=== PATIENT | male | born 1940 | race Caucasian/White ===

== ENCOUNTER 2021-02-05 11:39 | Observation (INO) | payer OTHER, MEDICARE ==
[~2021-02-05] VITALS: Ht 190.5 cm; Wt 83.8 kg
[2021-02-05 12:20] LABS: BASOPHILS % (AUTO) 0.3 % (0-1); EOSINOPHILS # (AUTO) 0.1 X10'3 (0-0.9); EOSINOPHILS % (AUTO) 1.9 % (0-6); HEMATOCRIT 40.7 % (42.0-52.0); HEMOGLOBIN 13.7 g/dl (14.0-17.9); LYMPHOCYTES % (AUTO) 15.2 % (21-51); MEAN CORPUSCULAR HEMOGLOBIN 31.3 PG (27.0-31.0); MEAN CORPUSCULAR HGB CONC 33.8 g/dL (33.0-36.5); MEAN CORPUSCULAR VOLUME 92.7 FL (78-98); MEAN PLATELET VOLUME 7.6 FL (7.4-10.4); MONOCYTES # (AUTO) 0.5 X10'3 (0-0.9); MONOCYTES % (AUTO) 7.1 % (2-12); NEUTROPHILS # (AUTO) 5.1 X10'3 (1.8-7.7); NEUTROPHILS % (AUTO) 75.5 % (42-75); PLATELET COUNT 253 X10'3 (140-440); RED BLOOD COUNT 4.38 X10'6 (4.70-6.10); RED CELL DISTRIBUTION WIDTH 12.5 % (11.5-14.5); WHITE BLOOD COUNT 6.7 X10'3 (4.5-11.0)
[2021-02-05 12:30] LABS: ALANINE AMINOTRANSFERASE 31 U/L (12-78); ALBUMIN 3.8 G/DL (3.4-5.0); ALBUMIN/GLOBULIN RATIO 1.2 (1.1-1.5); ALKALINE PHOSPHATASE 78 IU/L (46-116); ANION GAP 7 (8-16); ASPARTATE AMINO TRANSFERASE 18 U/L (10-37); BILIRUBIN,TOTAL 0.6 MG/DL (0.1-1.0); BLOOD UREA NITROGEN 18 MG/DL (7-18); BUN/CREATININE RATIO 20.9 (5.4-32.0); CALCIUM 10.7 MG/DL (8.5-10.1); CHLORIDE 106 MMOL/L (99-107); CREATININE 0.86 MG/DL (0.60-1.10); GLUCOSE 99 MG/DL (70-104); POTASSIUM 4.2 MMOL/L (3.5-5.1); SODIUM 141 MMOL/L (135-145); TOTAL CARBON DIOXIDE 28.4 MMOL/L (24-32); TOTAL PROTEIN 6.9 G/DL (6.4-8.2); eGFR 86 ML/MIN
[2021-02-05] MEDS ORDERED: NO HOME MEDS (13:19)
--- NOTE | 2021-02-05 14:04 | NUR ---
PT REPORTS THAT LEFT SIDED CHEST PAIN HAS RESOLVED.
[2021-02-05] MEDS ORDERED: aspirin 325mg tablet PO ONE (14:10)
[2021-02-05] MEDS ORDERED: potassium Cl 20 mEq SR tablet PO PRN ×2 (14:35)
[2021-02-05] MEDS ORDERED: acetaminophen 325mg tablet PO PRN ×2 (14:35)
[2021-02-05] MEDS ORDERED: magnesium 2GM in 50ml NS 50 ML IV PRN (14:35)
[2021-02-05] MEDS ORDERED: HYDROcodone/acetaminophen 5mg/325mg tablet PO PRN (14:35)
[2021-02-05] MEDS ORDERED: acetaminophen 650mg rectal suppository RC PRN (14:35)
[2021-02-05] MEDS ORDERED: bisacodyl 10mg suppository rectal RC PRN (14:35)
[2021-02-05] MEDS ORDERED: metoclopramide 5 mg/ml inj IV PRN (14:35)
[2021-02-05] MEDS ORDERED: aminophylline 250mg/10ml inj. IV PRN (14:35)
[2021-02-05] MEDS ORDERED: mag hydrox/Alum hydrox/simeth 30ml oral suspension PO PRN (14:35)
[2021-02-05] MEDS ORDERED: regadenoson 0.4mg/5ml syringe IV PRN (14:35)
[2021-02-05] MEDS ORDERED: metoprolol tartrate 1mg/ml inj IV PRN (14:35)
[2021-02-05] MEDS ORDERED: potassium Cl 40MEQ/1/2NS 520ml 520 ML IV PRN ×2 (14:35)
[2021-02-05] MEDS ORDERED: magnesium hydroxide 30ml (MOM) UD suspension PO PRN (14:35)
[2021-02-05] MEDS ORDERED: HYDROcodone/acetaminophen 10/325mg tab PO PRN (14:35)
[2021-02-05] MEDS ORDERED: ondansetron/PF 4mg/2ml inj IV PRN (14:35)
[2021-02-05] MEDS ORDERED: magnesium Cl slow-release 64mg tablet PO PRN (14:35)
[2021-02-05] MEDS ORDERED: magnesium 4gm in 100ml NS 100 ML IV PRN (14:35)
[2021-02-05] MEDS ORDERED: nitroGLYCERIN 0.4mg SUBLingual tab SL PRN ×2 (14:35)
[2021-02-05] MEDS ORDERED: iohexol 350MG/ML 100ml bottle IV ONE (15:45)
[2021-02-05] MEDS: normal saline 1000ml 1,000 ML IV SCH ×3 (15:57→20:50)
--- NOTE | 2021-02-05 16:20 | NUR ---
PT HAS GONE TO CT VIA [employer] AND NOW IS BACK IN ROOM.
--- NOTE | 2021-02-05 16:48 | NUR ---
ECHOCARDIOGRAM TECH IN ROOM FOR TEST,
[2021-02-05] MEDS: K and/or MAG REPLACEMENT MC SCH (16:49)
--- NOTE | 2021-02-05 18:31 | NUR ---
Assumed care of pt from KEVON Solano. Pt currently sitting up in bed, denies any pain at this time. Vitals taken. Will continue to monitor.
[2021-02-05 20:23] VITALS: BP 116/70
[2021-02-05] MEDS ORDERED: temazepam 15mg capsule PO PRN (21:00)
[2021-02-06] VITALS (13 sets, daily range): BP systolic 95–116; BP diastolic 51–68
[2021-02-06 01:21] LABS: BASOPHILS % (AUTO) 0.5 % (0-1); EOSINOPHILS # (AUTO) 0.2 X10'3 (0-0.9); EOSINOPHILS % (AUTO) 3.7 % (0-6); HEMOGLOBIN 12.4 g/dl (14.0-17.9); LYMPHOCYTES # (AUTO) 1.5 X10'3 (1.1-4.8); LYMPHOCYTES % (AUTO) 28.5 % (21-51); MEAN CORPUSCULAR HEMOGLOBIN 31.8 PG (27.0-31.0); MEAN CORPUSCULAR HGB CONC 34.4 g/dL (33.0-36.5); MEAN CORPUSCULAR VOLUME 92.4 FL (78-98); MEAN PLATELET VOLUME 7.4 FL (7.4-10.4); MONOCYTES # (AUTO) 0.6 X10'3 (0-0.9); MONOCYTES % (AUTO) 11.3 % (2-12); NEUTROPHILS # (AUTO) 2.9 X10'3 (1.8-7.7); PLATELET COUNT 217 X10'3 (140-440); RED CELL DISTRIBUTION WIDTH 12.6 % (11.5-14.5); WHITE BLOOD COUNT 5.2 X10'3 (4.5-11.0)
[2021-02-06 01:31] LABS: ALANINE AMINOTRANSFERASE 25 U/L (12-78); ALBUMIN/GLOBULIN RATIO 1.1 (1.1-1.5); ALKALINE PHOSPHATASE 70 IU/L (46-116); ANION GAP 5 (8-16); ASPARTATE AMINO TRANSFERASE 14 U/L (10-37); BILIRUBIN,TOTAL 0.4 MG/DL (0.1-1.0); BLOOD UREA NITROGEN 18 MG/DL (7-18); BUN/CREATININE RATIO 17.1 (5.4-32.0); CALCIUM 10.2 MG/DL (8.5-10.1); CHLORIDE 110 MMOL/L (99-107); CREATININE 1.05 MG/DL (0.60-1.10); GLUCOSE 119 MG/DL (70-104); SODIUM 142 MMOL/L (135-145); TOTAL CARBON DIOXIDE 27.5 MMOL/L (24-32); TOTAL PROTEIN 5.7 G/DL (6.4-8.2); eGFR 68 ML/MIN
[2021-02-06 01:34] LABS: CHOL/HDL RATIO 2.7 (0.00-4.99); CHOLESTEROL 113 MG/DL (0-200); HDL CHOLESTEROL 42 MG/DL (35-60); LDL CHOLESTEROL 62 MG/DL (50-100); MAGNESIUM 2.4 MG/DL (1.5-2.4); TRIGLYCERIDES 81 MG/DL (20-135)
--- NOTE | 2021-02-06 06:48 | NUR ---
Patient in room PCU 3023. I have received report from KEVON Restrepo and had the opportunity to ask questions and assume patient care. Patient asleep in bed and in no acute distress.
[2021-02-06] MEDS ORDERED: enoxaparin 40mg/0.4ml syringe SUBCUT SCH (08:00)
[2021-02-06] MEDS: K and/or MAG REPLACEMENT MC SCH (08:00)
[2021-02-06] MEDS ORDERED: aspirin 81mg tablet.DR PO SCH (08:30)
--- NOTE | 2021-02-06 11:26 | NUR ---
Paged Dr. Ponce regarding patient's shaneka scan results being back. PAGER ID: [phone] MESSAGE: [phone]. Hugo Torres. Shaneka results are back. Thank you. Yaritza LUND x [phone]
--- NOTE | 2021-02-06 14:10 | NUR ---
[place] Medication Administration: For this medication-pass time frame, all medication were reviewed, dispensed, administered and documented per hospital policy by KEVON Garcia.
--- NOTE | 2021-02-06 14:10 | NUR ---
[place] documentation: I have reviewed and agree with all interventions, assessments performed and documented by KEVON Garcia.
--- NOTE | 2021-02-06 14:23 | NUR ---
Patient discharged home at 1410 with family discharge instructions, He will be calling to make follow [facility]. Telemetry removed, PIV removed, all belongs sent with patient who left with with private vehicle
== END 2021-02-06 14:10 | disposition home or self-care (01) ==
LOC: ER 11:39 → ED HOLD 14:33 → PCU 3S 20:09
PROVIDERS: ADMIT Family Medicine; ATTEND Family Medicine
DX: R07.89 Other chest pain (principal); R06.00 Dyspnea, unspecified; Z85.46 Personal history of malignant neoplasm of prostate; Z90.79 Acquired absence of other genital organ(s); Z79.899 Other long term (current) drug therapy; Z79.82 Long term (current) use of aspirin
CPT/HCPCS: 36415; 71045; 71275; 78452; 80053; 80061; 83735; 83880; 84100; 84443; 84484; 85025; 87081; 93005; 93017; 93306; 96360; 96361; 96372; 99285; A9500; G0378; J2785; J7030; Q9967; J1650